=== PATIENT | female | born 1985 | race Caucasian/White ===

== ENCOUNTER 2018-01-07 19:27 | Emergency (ER) | payer OTHER ==
[~2018-01-07] VITALS: Ht 165.1 cm; Wt 46.4 kg
[~2018-01-07 19:27] MED LIST: BIRTH CONTROL PATCH; DOXYCYCLINE 10100 MG PO; MACROBID 1100 MG/CAP PO
[2018-01-07 19:30] VITALS: TEMP 98.5
[2018-01-07] MEDS ORDERED: XULANE1 TDM TD (19:33)
[2018-01-07 19:51] LABS: COLLECTION METHOD CLEAN CATCH
[2018-01-07 20:04] LABS: BASO # 0.1 (0.0-0.2); BASO % 0.7 % (0.0-2.0); EOS # 0.7 (0.0-0.7); EOS % 8.2 % (0-4.0); GRAN # 4.6 (1.4-6.5); GRAN % 55.9 % (42.2-75.2); HEMOGLOBIN 11.2 g/dl (12.5-16.0); LYMPH # 2.3 (1.2-3.4); LYMPH % 27.3 % (20.0-51.0); MEAN CELL VOLUME 88 fl (80.0-100.0); MEAN CORPUSCULAR HEMOGLOBIN 30 pg (27.0-31.0); MEAN CORPUSCULAR HGB CONC 34 g/dl (33.0-37.0); MEAN PLATELET VOLUME 11.2 fl (7.4-10.4); MONO # 0.6 (0.1-0.6); MONO % 7.7 % (1.7-9.3); PLATELET COUNT 178 K/mm3 (130-400); RED BLOOD COUNT 3.76 M/mm3 (4.10-5.30); REDCELL DISTRIBUTION WIDTH-CV 12.7 % (11.5-14.5)
[2018-01-07 20:06] LABS: ALBUMIN 3.7 gm/dL (3.5-5.0); BILIRUBIN,TOTAL 0.3 mg/dL (0.0-1.0); CALCIUM 9.2 mg/dL (8.4-10.2); CREATININE, serum 0.73 mg/dL (0.52-1.25); POTASSIUM 3.6 mmol/L (3.4-5.0); TOTAL PROTEIN 7.5 gm/dL (6.4-8.2)
[2018-01-07 20:07] LABS: HEMATOCRIT 32.9 % (37.0-47.0)
[2018-01-07 20:08] LABS: PH 7 (5-8); URINE APPEARANCE Clear; URINE BACTERIA Rare /hpf; URINE BILIRUBIN Negative (NEGATIVE); URINE BLOOD 1+ (NEGATIVE); URINE COLOR Straw; URINE GLUCOSE 1+ (NEGATIVE); URINE KETONE Negative (NEGATIVE); URINE LEUKOCYTE ESTERASE Negative (NEGATIVE); URINE NITRATE Negative (NEGATIVE); URINE PROTEIN(semi-quant) Negative (NEGATIVE); URINE RBC 0-2 /hpf; URINE UROBILINOGEN Negative (NEGATIVE)
[2018-01-07 20:33] LABS: C-REACTIVE PROTEIN 1.4 mg/dL (0.0-0.9)
[2018-01-07 20:54] VITALS: BP 111/76
[2018-01-07] MEDS ORDERED: ZOFRAN ODT4 MG PO (22:36)
[2018-01-07 22:54] VITALS: PULSE 59
== END 2018-01-07 22:55 | disposition home or self-care (01) ==
LOC: COL.ER 19:27
PROVIDERS: Physician Assistant
DX: N83.202 Unspecified ovarian cyst, left side (principal); Z87.442 Personal history of urinary calculi; Z98.890 Other specified postprocedural states
CPT/HCPCS: Q9967

== ENCOUNTER 2018-05-30 10:54 | Emergency (ER) | payer OTHER ==
[~2018-05-30] VITALS: Ht 165.1 cm; Wt 47.7 kg
[~2018-05-30 10:54] MED LIST changes: +XULANE1 TDM TD; +ZOFRAN ODT4 MG PO
[2018-05-30 11:02] VITALS: TEMP 98.9
[2018-05-30 11:36] LABS: BASO # 0.1 (0.0-0.2); BASO % 1.1 % (0.0-2.0); EOS # 0.8 (0.0-0.7); GRAN # 4.8 (1.4-6.5); GRAN % 56.5 % (42.2-75.2); HEMATOCRIT 37.1 % (37.0-47.0); HEMOGLOBIN 12.2 g/dl (12.5-16.0); LYMPH # 2.2 (1.2-3.4); LYMPH % 26.3 % (20.0-51.0); MEAN CELL VOLUME 89 fl (80.0-100.0); MEAN CORPUSCULAR HEMOGLOBIN 29 pg (27.0-31.0); MEAN CORPUSCULAR HGB CONC 33 g/dl (33.0-37.0); MEAN PLATELET VOLUME 10.9 fl (7.4-10.4); MONO # 0.6 (0.1-0.6); MONO % 6.7 % (1.7-9.3); PLATELET COUNT 196 K/mm3 (130-400); RED BLOOD COUNT 4.19 M/mm3 (4.10-5.30); REDCELL DISTRIBUTION WIDTH-CV 13.3 % (11.5-14.5)
[2018-05-30 11:50] LABS: ALBUMIN 4.4 gm/dL (3.5-5.0); BILIRUBIN,TOTAL 0.5 mg/dL (0.0-1.0); CALCIUM 9.6 mg/dL (8.4-10.2); CREATININE, serum 0.72 mg/dL (0.52-1.25); TOTAL PROTEIN 7.8 gm/dL (6.4-8.2)
[2018-05-30 12:20] LABS: COLLECTION METHOD CLEAN CATCH
[2018-05-30 12:29] LABS: MUCOUS Present /lpf; PH 7 (5-8); URINE APPEARANCE Hazy; URINE BACTERIA Rare /hpf; URINE BILIRUBIN Negative (NEGATIVE); URINE BLOOD Negative (NEGATIVE); URINE COLOR Yellow; URINE GLUCOSE Negative (NEGATIVE); URINE KETONE Negative (NEGATIVE); URINE LEUKOCYTE ESTERASE Negative (NEGATIVE); URINE NITRATE Negative (NEGATIVE); URINE PROTEIN(semi-quant) Negative (NEGATIVE); URINE RBC 0-2 /hpf; URINE UROBILINOGEN Negative (NEGATIVE)
[2018-05-30] MEDS ORDERED: PHENERGAN 25 TA25 MG PO (14:11)
[2018-05-30 14:50] VITALS: BP 117/67; PULSE 69
== END 2018-05-30 14:56 | disposition home or self-care (01) ==
LOC: COL.ER 10:54
PROVIDERS: Emergency Medicine
DX: N83.201 Unspecified ovarian cyst, right side (principal); I82.0 Budd-Chiari syndrome
CPT/HCPCS: J0780; J1170; J1885; J7030; Q9967

== ENCOUNTER 2018-06-25 08:38 | Emergency (ER) | payer OTHER ==
[~2018-06-25] VITALS: Ht 165.1 cm; Wt 46.8 kg
[~2018-06-25 08:38] MED LIST changes: +PHENERGAN 25 TA25 MG PO
[2018-06-25 08:44] VITALS: TEMP 97.6
[2018-06-25 09:07] LABS: BASO # 0.1 (0.0-0.2); BASO % 0.7 % (0.0-2.0); EOS # 0.6 (0.0-0.7); EOS % 6.7 % (0-4.0); GRAN # 5.9 (1.4-6.5); GRAN % 67.3 % (42.2-75.2); HEMOGLOBIN 12.4 g/dl (12.5-16.0); LYMPH # 1.7 (1.2-3.4); LYMPH % 19.6 % (20.0-51.0); MEAN CELL VOLUME 86 fl (80.0-100.0); MEAN CORPUSCULAR HEMOGLOBIN 29 pg (27.0-31.0); MEAN CORPUSCULAR HGB CONC 34 g/dl (33.0-37.0); MEAN PLATELET VOLUME 10.7 fl (7.4-10.4); MONO # 0.5 (0.1-0.6); MONO % 5.5 % (1.7-9.3); PLATELET COUNT 186 K/mm3 (130-400); RED BLOOD COUNT 4.26 M/mm3 (4.10-5.30); REDCELL DISTRIBUTION WIDTH-CV 13.2 % (11.5-14.5)
[2018-06-25 09:08] LABS: HEMATOCRIT 36.6 % (37.0-47.0)
[2018-06-25 09:18] LABS: ALBUMIN 4.4 gm/dL (3.5-5.0); BILIRUBIN,TOTAL 0.5 mg/dL (0.0-1.0); C-REACTIVE PROTEIN 0.6 mg/dL (0.0-0.9); CALCIUM 9.8 mg/dL (8.4-10.2); CREATININE, serum 0.77 mg/dL (0.52-1.25); POTASSIUM 3.9 mmol/L (3.4-5.0); TOTAL PROTEIN 7.6 gm/dL (6.4-8.2)
[2018-06-25] MEDS ORDERED: NORCO 325 MG-51 TAB PO (10:46)
[2018-06-25] MEDS ORDERED: ZOFRAN ODT4 MG PO (11:47)
[2018-06-25 12:03] VITALS: BP 101/64; PULSE 65
== END 2018-06-25 12:12 | disposition home or self-care (01) ==
LOC: COL.ER 08:38
PROVIDERS: Physician Assistant
DX: N83.201 Unspecified ovarian cyst, right side (principal); Z90.721 Acquired absence of ovaries, unilateral
CPT/HCPCS: J1170; J1885; J2405; J7030

== ENCOUNTER 2018-07-06 06:42 | Day surgery (SDC) | payer OTHER ==
[~2018-07-06] VITALS: Ht 165.1 cm; Wt 47.7 kg
[~2018-07-06 06:42] MED LIST changes: +NORCO 325 MG-51 TAB PO
[2018-07-06 07:32] VITALS: BP 112/80; PULSE 70; TEMP 98.2
[2018-07-06 08:35] VITALS: BP 113/77; PULSE 82; TEMP 98.3
[2018-07-06 08:50] VITALS: BP 118/77; PULSE 72
[2018-07-06 09:05] VITALS: BP 105/71; PULSE 64
[2018-07-06 09:20] VITALS: BP 105/71; PULSE 64
[2018-07-06 09:26] VITALS: BP 113/77; PULSE 82
== END 2018-07-06 09:30 | disposition home or self-care (01) ==
LOC: SDCO 06:42
DX: R07.89 Other chest pain (principal); R11.0 Nausea; F41.9 Anxiety disorder, unspecified; R10.11 Right upper quadrant pain; R10.31 Right lower quadrant pain; R93.5 Abnormal findings on diagnostic imaging of other abdominal regions, including retroperitoneum
CPT/HCPCS: J2250; J2405; J3010; J7030

== ENCOUNTER → 2018-07-11 | Outpatient (CLI) | payer OTHER | LOC: COL.RAD 10:18 | DX: R93.5 Abnormal findings on diagnostic imaging of other abdominal regions, including retroperitoneum (principal); R10.11 Right upper quadrant pain; R10.31 Right lower quadrant pain; R06.00 Dyspnea, unspecified; R07.9 Chest pain, unspecified; R11.0 Nausea ==

== ENCOUNTER → 2018-08-06 | Outpatient (CLI) | payer OTHER | LOC: COL.RAD 06:34 | DX: R93.5 Abnormal findings on diagnostic imaging of other abdominal regions, including retroperitoneum (principal); R10.31 Right lower quadrant pain; R06.00 Dyspnea, unspecified; R10.9 Unspecified abdominal pain | CPT/HCPCS: A9537 ==

== ENCOUNTER → 2018-08-29 | Outpatient (CLI) | payer OTHER | LOC: COL.RAD 10:50 | DX: M41.25 Other idiopathic scoliosis, thoracolumbar region (principal) ==

== ENCOUNTER → 2019-01-25 | Outpatient (CLI) | payer OTHER ==
[2019-01-25 11:56] LABS: BASO # 0.1 (0.0-0.2); BASO % 1.1 % (0.0-2.0); EOS # 0.5 (0.0-0.7); EOS % 7.7 % (0-4.0); GRAN # 3.6 (1.4-6.5); HEMATOCRIT 39.9 % (37.0-47.0); HEMOGLOBIN 13.2 g/dl (12.5-16.0); LYMPH # 1.8 (1.2-3.4); LYMPH % 28.4 % (20.0-51.0); MEAN CELL VOLUME 88 fl (80.0-100.0); MEAN CORPUSCULAR HEMOGLOBIN 29 pg (27.0-31.0); MEAN CORPUSCULAR HGB CONC 33 g/dl (33.0-37.0); MEAN PLATELET VOLUME 10.7 fl (7.4-10.4); MONO # 0.4 (0.1-0.6); MONO % 6.5 % (1.7-9.3); PLATELET COUNT 238 K/mm3 (130-400); RED BLOOD COUNT 4.52 M/mm3 (4.10-5.30)
[2019-01-25 12:10] LABS: ALBUMIN 4.8 gm/dL (3.5-5.0); BILIRUBIN,TOTAL 0.6 mg/dL (0.0-1.0); CALCIUM 10.1 mg/dL (8.4-10.2); CREATININE, serum 0.82 (0.52-1.25); TOTAL PROTEIN 9.1 gm/dL (6.4-8.2)
[2019-01-25 13:22] LABS: INR 1.2 (0.8-3.0); PROTHROMBIN TIME 14.5 SECONDS (9.7-12.8)
== END ==
LOC: COL.LAB 11:34
PROVIDERS: Physician Assistant
DX: R93.5 Abnormal findings on diagnostic imaging of other abdominal regions, including retroperitoneum (principal); R10.31 Right lower quadrant pain; R11.0 Nausea; R07.9 Chest pain, unspecified

== ENCOUNTER → 2019-02-06 | Outpatient (CLI) | payer OTHER | LOC: COL.CARD 11:58 | DX: R00.2 Palpitations (principal) ==

== ENCOUNTER → 2019-02-28 | Outpatient (CLI) | payer OTHER ==
[2019-02-28 16:57] LABS: INR 1.1 (0.8-3.0); PROTHROMBIN TIME 13.4 SECONDS (9.7-12.8)
== END ==
LOC: COL.LAB 15:23
PROVIDERS: Physician Assistant
DX: R79.1 Abnormal coagulation profile (principal); R93.5 Abnormal findings on diagnostic imaging of other abdominal regions, including retroperitoneum; R10.31 Right lower quadrant pain

== ENCOUNTER → 2020-01-27 | Outpatient (CLI) | payer OTHER ==
[2020-01-27 15:29] LABS: BASO # 0.1 (0.0-0.2); BASO % 0.7 % (0.0-2.0); EOS # 0.5 (0.0-0.7); EOS % 5.6 % (0-4.0); GRAN # 5.1 (1.4-6.5); GRAN % 58.3 % (42.2-75.2); HEMOGLOBIN 12.2 g/dl (12.5-16.0); LYMPH # 2.4 (1.2-3.4); LYMPH % 27.1 % (20.0-51.0); MEAN CELL VOLUME 89 fl (80.0-100.0); MEAN CORPUSCULAR HEMOGLOBIN 30 pg (27.0-31.0); MEAN CORPUSCULAR HGB CONC 33 g/dl (33.0-37.0); MONO # 0.7 (0.1-0.6); PLATELET COUNT 179 K/mm3 (130-400); RED BLOOD COUNT 4.09 M/mm3 (4.10-5.30); REDCELL DISTRIBUTION WIDTH-CV 12.7 % (11.5-14.5)
[2020-01-27 15:32] LABS: HEMATOCRIT 36.5 % (37.0-47.0)
[2020-01-27 15:35] LABS: INR 1.3 (0.8-3.0); PROTHROMBIN TIME 14.8 SECONDS (9.7-12.8)
[2020-01-27 15:39] LABS: ALBUMIN 4.4 gm/dL (3.5-5.0); BILIRUBIN,TOTAL 0.4 mg/dL (0.0-1.0); CALCIUM 9.3 mg/dL (8.4-10.2); CREATININE, serum 0.79 (0.52-1.25); TOTAL PROTEIN 8.2 gm/dL (6.4-8.2)
== END ==
LOC: COL.LAB 14:55
PROVIDERS: Internal Medicine Gastroenterology
DX: R93.5 Abnormal findings on diagnostic imaging of other abdominal regions, including retroperitoneum (principal); R79.1 Abnormal coagulation profile; R10.31 Right lower quadrant pain

== ENCOUNTER → 2020-02-03 | Outpatient (CLI) | payer OTHER | LOC: COL.RAD 07:25 | DX: R10.31 Right lower quadrant pain (principal); R07.9 Chest pain, unspecified; R93.5 Abnormal findings on diagnostic imaging of other abdominal regions, including retroperitoneum; R79.1 Abnormal coagulation profile ==